=== PATIENT | male | born 1970 | race Two or more races ===

== ENCOUNTER 2023-05-08 09:44 | Inpatient (IN) | payer OTHER ==
[2023-05-08 10:33] VITALS: BMI 31.8
[2023-05-08] MEDS ORDERED: guaiFENesin 600 MG TABLET.ER (FP) PO PRN (11:27)
[2023-05-08] MEDS ORDERED: ONDANSETRON *ODT* 4 MG TABLET SL PRN (11:27)
[2023-05-08] MEDS ORDERED: MAG HYDROX/AL HYDROX/SIMETH 30 ML UNIT-DOSE CUP PO PRN (11:27)
[2023-05-08] MEDS ORDERED: NALOXONE HCL 0.4 MG/ML VIAL IM PRN (11:27)
[2023-05-08] MEDS ORDERED: DICYCLOMINE HCL 10 MG CAPSULE PO PRN (11:27)
[2023-05-08] MEDS ORDERED: LOPERAMIDE HCL 2 MG CAPSULE PO PRN (11:27)
[2023-05-08] MEDS ORDERED: BISMUTH SUBSALICYLATE 524 MG/30 ML PO PRN (11:27)
[2023-05-08] MEDS ORDERED: NALOXONE HCL (KLOXXADO) 8 MG SPRAY NS PRN (11:27)
[2023-05-08] MEDS ORDERED: IBUPROFEN 600 MG TABLET (FP) PO PRN (11:27)
[2023-05-08] MEDS ORDERED: NICOTINE POLACRILEX 4 MG GUM BUC PRN (11:27)
[2023-05-08] MEDS ORDERED: MAGNESIUM HYDROX 2400MG/30ML ORAL SUSPENSION 30 ML CUP PO PRN (11:27)
[2023-05-08] MEDS ORDERED: BENZONATATE 200 MG CAPSULE PO PRN (11:27)
[2023-05-08] MEDS ORDERED: POLYETHYLENE GLYCOL (HEALTHYLAX) 3350 17 GM PACKET PO PRN (11:27)
[2023-05-08] MEDS ORDERED: IBUPROFEN 400 MG TABLET (FP) PO PRN (11:27)
[2023-05-08] MEDS ORDERED: ACETAMINOPHEN 325 MG TABLET (FP) PO PRN (11:27)
[2023-05-08] MEDS ORDERED: BENZOCAINE/MENTHOL (CHLORASEPTIC ) LOZENGE MM PRN (11:27)
[2023-05-08] MEDS: THIAMINE HCL 100 MG TABLET (FP) PO SCH (22:18)
[2023-05-08] MEDS: METHOCARBAMOL 500 MG TABLET PO PRN (22:18)
[2023-05-08] MEDS: MELATONIN 5 MG TABLETS PO SCH (22:18)
[2023-05-09] MEDS: SERTRALINE HCL 25 MG TABLET (FP) PO SCH (10:18)
[2023-05-09] MEDS: PRENATAL VITAMINS W/ FOLIC ACID TABLET (FP) PO SCH (10:18)
[2023-05-09] MEDS: MELATONIN 5 MG TABLETS PO SCH (21:41)
[2023-05-09] MEDS: METHOCARBAMOL 500 MG TABLET PO PRN (21:41)
[2023-05-09] MEDS: THIAMINE HCL 100 MG TABLET (FP) PO SCH (21:41)
[2023-05-09] MEDS: hydrOXYzine PAMOATE 25 MG CAPSULE (FP) PO PRN (21:41)
[2023-05-10] MEDS ORDERED: methaDONE HCL 10 MG TABLET (FOR DETOX USE ONLY) PO ONE (09:16)
[2023-05-10] MEDS ORDERED: cloNIDine HCL 0.1 MG TABLET PO PRN (09:16)
[2023-05-10] MEDS ORDERED: methaDONE HCL 10 MG TABLET PO ONE (10:30)
[2023-05-10] MEDS: SERTRALINE HCL 25 MG TABLET (FP) PO SCH (10:42)
[2023-05-10] MEDS: hydrOXYzine PAMOATE 25 MG CAPSULE (FP) PO PRN (10:42)
[2023-05-10] MEDS: PRENATAL VITAMINS W/ FOLIC ACID TABLET (FP) PO SCH (10:42)
[2023-05-10] MEDS: METHOCARBAMOL 500 MG TABLET PO PRN (10:42)
[2023-05-10 10:50] LABS: HEMATOCRIT 41.9 % (35.4-49); HEMOGLOBIN 14.3 GM/dL (11.7-16.9); MCH 31.5 pg (25.7-33.7); MEAN CELL VOLUME 92.7 fl (80-96); MEAN PLT VOLUME 9.1 fl (7.5-11.1); PLATELET COUNT 279 10^3/uL (134-434); RBC 4.53 M/mm3 (4.00-5.60); RDW 13.4 % (11.9-15.9); WHITE BLOOD COUNT 9.3 K/mm3 (4.0-10.0)
[2023-05-10 10:57] LABS: POTASSIUM 4.3 mmol/L (3.5-5.1)
[2023-05-10 11:20] LABS: ALBUMIN 3.3 g/dl (3.4-5.0); BLOOD UREA NITROGEN 17.1 mg/dL (7-18); CALCIUM 9.2 mg/dL (8.5-10.1)
[2023-05-10 11:23] LABS: CREATININE 1.4 mg/dL (0.55-1.3)
[2023-05-10 11:26] LABS: BILIRUBIN,TOTAL 0.2 mg/dL (0.2-1); TOT PROT 6.6 g/dl (6.4-8.2)
[2023-05-10] MEDS: THIAMINE HCL 100 MG TABLET (FP) PO SCH (21:47)
[2023-05-10] MEDS: MELATONIN 5 MG TABLETS PO SCH (21:47)
[2023-05-11 06:29] VITALS: BP 140/82; PULSE 60; RESP 18; TEMP 98
[2023-05-12] MEDS ORDERED: methaDONE HCL 10 MG TABLET (FOR DETOX USE ONLY) PO ONE (10:00)
[2023-05-14] MEDS ORDERED: methaDONE HCL 10 MG TABLET (FOR DETOX USE ONLY) PO ONE (10:00)
== END 2023-05-11 09:28 | disposition left against medical advice (07) | DRG 770 ==
LOC: YASAS 09:44 → Y3N 11:37
PROVIDERS: ADMIT Allergy & Immunology; ATTEND Surgery
PROC: HZ2ZZZZ Detoxification Services for Substance Abuse Treatment (ICD-10-PCS; principal; 2023-05-08)
DX: F11.23 Opioid dependence with withdrawal (principal); F17.210 Nicotine dependence, cigarettes, uncomplicated; F19.24 Other psychoactive substance dependence with psychoactive substance-induced mood disorder; F41.9 Anxiety disorder, unspecified; F32.A Depression, unspecified; G47.30 Sleep apnea, unspecified; I10 Essential (primary) hypertension; M19.90 Unspecified osteoarthritis, unspecified site
CPT/HCPCS: 36415; 80053; 85027; 86780; 87635; 87811; 93005; 93010